=== PATIENT | male | born 1980 | race Caucasian/White ===

== ENCOUNTER 2021-04-22 13:04 | Inpatient (IN) | payer BC ==
[~2021-04-22] VITALS: Ht 177.8 cm; Wt 76.4 kg
[~2021-04-22 13:04] MED LIST: ATARAX,VISTARIL50 MG PO; CARBIDOPA/LEVOD1 TA1 PO; NATURE'S BLEND F1 MG PO; THERA TABS1 TAB PO; VITAMIN B-11 TAB PO; ZOFRAN4 MG PO
[2021-04-22 13:16] VITALS: BP 163/97
[2021-04-22 14:20] LABS: BASO % 0.2 % (0.0-1.0); EOS % 0.2 % (1.0-4.0); HEMATOCRIT 45.7 % (42.0-52.0); LYMPH # 0.5 10*3/uL (1.3-4.4); LYMPH % 7.5 % (27.0-41.0); MEAN CELL VOLUME 94.4 fl (80.0-94.0); MEAN CORPUSCULAR HGB 34.3 pg (27.0-31.0); MEAN CORPUSCULAR HGB CONC 36.3 g/dl (33.0-37.0); MEAN PLATELET VOLUME 9.1 fl (9.6-12.3); MONO # 0.6 10*3/uL (0.1-1.0); MONO % 8.9 % (3.0-9.0); NEUT # 5.2 10*3/uL (2.3-7.9); PLATELET COUNT AUTOMATED 105 10*3/uL (130-400); RED BLOOD COUNT 4.84 10*6/uL (4.50-5.90); RED CELL DISTRI WIDTH 12.9 % (0-14.5); WHITE BLOOD COUNT 6.3 10*3/uL (4.8-10.8)
[2021-04-22 14:33] LABS: ALBUMIN 4.9 gm/dl (3.1-4.5); ALKALINE PHOSPHATASE 81 U/L (45-117); BUN 4 mg/dl (7-24); CHLORIDE 93 mmol/L (98-107); CREATININE 1.01 mg/dL (0.70-1.30); POTASSIUM 4.3 mmol/L (3.5-5.1); SGOT/AST 435 IU/L (3-35); SGPT/ALT 420 U/L (12-78); SODIUM 131 mmol/L (136-145); TOTAL PROTEIN 8.5 gm/dL (6.4-8.2)
[2021-04-22 14:34] LABS: ETHYL ALCOHOL < 3.0 mg/dl (<3)
[2021-04-22 14:37] LABS: BILIRUBIN Negative (Negative); BLOOD Negative (Negative); CLARITY Clear (Clear); COLOR Yellow (Yellow); GLUCOSE Negative (Negative); KETONE Negative (Negative); LEUKO ESTERASE 1+ (Negative); NITRITE Negative (Negative); SPECIFIC GRAVITY <= 1.005 (1.001-1.030)
[2021-04-22 14:44] LABS: URINE AMPHETAMINES < 1000 (1000ng/ml); URINE BARBITURATES < 200 (200ng/ml); URINE BENZODIAZEPINES < 200 (200ng/ml); URINE CANNABINOIDS (THC) < 50 (50ng/ml); URINE COCAINE < 300 (300ng/ml); URINE METHADONE < 300 (300ng/ml); URINE OPIATES < 300 (300ng/ml); URINE PHENCYCLIDINE < 25 (25ng/ml)
[2021-04-22 14:48] LABS: BACTERIA TRACE
[2021-04-22 17:47] VITALS: BP 158/90
[2021-04-22 20:00] VITALS: BP 173/88
[2021-04-23 00:01] VITALS: BP 153/86
[2021-04-23 04:35] LABS: BASO % 0.3 % (0.0-1.0); EOS % 0.5 % (1.0-4.0); HEMATOCRIT 40.7 % (42.0-52.0); LYMPH % 26.5 % (27.0-41.0); MEAN CELL VOLUME 96.7 fl (80.0-94.0); MEAN CORPUSCULAR HGB 33.5 pg (27.0-31.0); MEAN CORPUSCULAR HGB CONC 34.6 g/dl (33.0-37.0); MEAN PLATELET VOLUME 10.2 fl (9.6-12.3); MONO # 0.4 10*3/uL (0.1-1.0); MONO % 10.8 % (3.0-9.0); NEUT # 2.3 10*3/uL (2.3-7.9); NEUT % 61.6 % (47.0-73.0); RED BLOOD COUNT 4.21 10*6/uL (4.50-5.90); RED CELL DISTRI WIDTH 13.1 % (0-14.5); WHITE BLOOD COUNT 3.7 10*3/uL (4.8-10.8)
[2021-04-23 04:56] LABS: ALBUMIN 3.8 gm/dl (3.1-4.5); BUN 8 mg/dl (7-24); CHLORIDE 103 mmol/L (98-107); CHOLESTEROL 146 mg/dL (<200); CREATININE 0.96 mg/dL (0.70-1.30); POTASSIUM 4.1 mmol/L (3.5-5.1); SGOT/AST 325 IU/L (3-35); SGPT/ALT 330 U/L (12-78); SODIUM 136 mmol/L (136-145); TRIGLYCERIDES 58 mg/dl (<150)
[2021-04-23 05:02] LABS: ACT PARTIAL THROMBO TIME 24.8 SECONDS (20.0-32.1); INTERNATIONAL NORM RATIO 1.1 (2.0-3.5)
[2021-04-23 05:03] LABS: ALKALINE PHOSPHATASE 68 U/L (45-117); FREE T4 1.01 ng/dl (0.76-1.46); LDL CHOLESTEROL 46 mg/dL (9-159); TOTAL PROTEIN 6.6 gm/dL (6.4-8.2)
[2021-04-23 05:55] LABS: PLATELET COUNT AUTOMATED 68 10*3/uL (130-400)
[2021-04-23 07:36] LABS: VITAMIN D, 25-HYDROXY 65.3 ng/mL (30-100)
[2021-04-23 08:00] VITALS: BP 148/88; BP 149/72
[2021-04-23 12:00] VITALS: BP 144/83
[2021-04-23 16:00] VITALS: BP 138/75
[2021-04-23 20:00] VITALS: BP 163/86
[2021-04-24] VITALS: BP 158/92
[2021-04-24 05:49] LABS: ALBUMIN 3.7 gm/dl (3.1-4.5); BUN 11 mg/dl (7-24); CHLORIDE 105 mmol/L (98-107); CREATININE 1.06 mg/dL (0.70-1.30); SGOT/AST 192 IU/L (3-35); SGPT/ALT 270 U/L (12-78); SODIUM 138 mmol/L (136-145); TOTAL PROTEIN 6.5 gm/dL (6.4-8.2)
[2021-04-24 05:50] LABS: ALKALINE PHOSPHATASE 82 U/L (45-117)
[2021-04-24 08:00] VITALS: BP 121/76
[2021-04-24 12:00] VITALS: BP 156/86
[2021-04-24] MEDS ORDERED: ATARAX,VISTARIL50 MG PO (13:03)
== END 2021-04-24 15:42 | disposition home or self-care (01) | DRG 897 ==
LOC: ED 13:04 → EDHOLD 14:14 → 4E 17:09
PROVIDERS: Internal Medicine; Nurse Practitioner; Student in an Organized Health Care Education/Training Program; ADMIT Emergency Medicine; ATTEND Emergency Medicine
DX: F10.239 Alcohol dependence with withdrawal, unspecified (principal); E87.1 Hypo-osmolality and hyponatremia; R82.71 Bacteriuria; F41.9 Anxiety disorder, unspecified; M79.10 Myalgia, unspecified site; G25.81 Restless legs syndrome; R73.9 Hyperglycemia, unspecified; E87.8 Other disorders of electrolyte and fluid balance, not elsewhere classified; D69.6 Thrombocytopenia, unspecified; F17.220 Nicotine dependence, chewing tobacco, uncomplicated